=== PATIENT | male | born 1960 | race Caucasian/White ===

== ENCOUNTER 2022-09-30 15:49 | Outpatient (CLI) | payer BC, SELFPAY ==
[2022-09-30 17:44] LABS: Albumin* 4.6 g/dL (3.3-5.0); Chloride* 105 mmol/L (96-114)
[2022-09-30 17:45] LABS: Potassium* 4.8 mmol/L (3.6-5.1); Sodium* 141 mmol/L (135-149)
[2022-09-30 17:47] LABS: Bilirubin Total* 0.7 mg/dL (0.1-1.5); Creatinine* 1.3 mg/dL (0.5-1.5); Estimated Glomerular Filt Rate 63 ml/min
[2022-09-30 17:48] LABS: Alanine Aminotransferase* 13 U/L (4-50); Alkaline Phosphatase* 79 U/L (40-150); Aspartate Amino Transferase* 19 U/L (12-35); Blood Urea Nitrogen* 20 mg/dL (7-30); Calcium* 10.1 mg/dL (8.4-10.6); Carbon Dioxide* 28 mmol/L (20-32); Glucose* 86 mg/dL (60-115)
[2022-09-30 18:14] LABS: TSH With Reflex to FT4* 0.757 uIU/mL (0.270-4.200)
== END 2022-09-30 15:50 | disposition home or self-care (01) ==
PROVIDERS: PCP Family Medicine; Visit Provider Family Medicine
DX: R63.4 Abnormal weight loss (principal); I10 Essential (primary) hypertension; E78.5 Hyperlipidemia, unspecified; N18.9 Chronic kidney disease, unspecified; E78.1 Pure hyperglyceridemia
CPT/HCPCS: 80053; 84443

== ENCOUNTER 2022-10-03 13:00 | Outpatient (CLI) | payer BC, SELFPAY ==
--- NOTE | 2022-10-03 13:00 | CRLHL7_ITS ---
For Patients: As a result of the Century Cures Act, medical imaging exams and procedure reports are released immediately into your electronic medical record. You may view this report before your referring provider. If you have questions, please contact your health care provider. INDICATION: Tongue mass. TECHNIQUE: CT of the neck soft tissues performed with IV contrast. Contrast: 94 cc Isovue 370. COMPARISON: None available at this institution. FINDINGS: There is a large base of tongue lesion which measures up to approximately 4.9 x 4.2 x 4.3 cm (TR X AP X CC). Lesion centered upon the right base of tongue however appears to cross midline. Erosive changes along the right base of tongue mucosal surface. The lesion obscures fat planes between the right base of tongue and extrinsic muscles of the tongue. There is potential for extrinsic tongue muscle involvement. The nasopharynx appears unremarkable. The glottic and infraglottic spaces appear preserved. There are multiple necrotic appearing lymph nodes present at multiple cervical levels including bilateral level 2, 3 and left level 4. Largest right-sided lymph node located level 2b and measures up to 1.9 cm. The larger left-sided lymph nodes are located left level 2A, measuring up to 2.2 cm and left level 4 measuring up to 2.3 cm. Thyroid gland appears unremarkable. The parotid and submandibular glands appear normal. Mild centrilobular and paraseptal emphysema. Mild spondylosis of the cervical spine. IMPRESSION: 1. Large right base of tongue lesion likely primary carcinoma, measuring up to 4.9 cm and crossing midline. Correlate with direct visualization and biopsy. Consider MRI evaluation as indicated for potential involvement of the extrinsic tongue musculature. 2. Multiple cervical chain necrotic likely metastatic lymphadenopathy involving bilateral levels 2 and 3 in addition to left level 4 and measuring up to 2.3 cm. Please note that all CT scans at this facility use dose modulation, iterative reconstruction, and/or weight-based dosing when appropriate to reduce radiation dose to as low as reasonably achievable. Dictated by Rajinder Coronado MD @ 10/03/2022 3:45:14 PM (Electronically Signed)
== END 2022-10-03 13:01 | disposition home or self-care (01) ==
PROVIDERS: PCP Family Medicine; Visit Provider Family Medicine
DX: K14.8 Other diseases of tongue (principal)
CPT/HCPCS: 70491; Q9967

== ENCOUNTER 2022-12-21 14:52 | Outpatient (CLI) | payer BC, SELFPAY ==
[2022-12-21 18:36] LABS: PCR FLU A Negative PCR FLU A (Negative); PCR FLU B Negative PCR FLU B (Negative); PCR RSV Negative PCR RSV (Negative); SARS PCR* POSITIVE SARS-CoV-2 (Negative)
== END 2022-12-21 14:53 | disposition home or self-care (01) ==
LOC: LONREF 14:53
PROVIDERS: PCP Family Medicine; Visit Provider Family Medicine
DX: R05.9 Cough, unspecified (principal)
CPT/HCPCS: 87502; 87634; 87635

== ENCOUNTER 2023-02-06 09:28 | Emergency (ER) | payer BC, SELFPAY ==
[2023-02-06 09:32] VITALS: BP 118/75; PULSE 83; RESP 20; O2SAT 95; BMI 22.8
--- NOTE | 2023-02-06 10:17 | ED.GENADULT ---
HPI - General Adult General Time Seen by Provider: 10:17 Date Seen: 02/06/23 Chief complaint: Abdominal Pain Stated complaint: From [facility] Time Seen by Provider: 02/06/23 10:16 Source: patient, family, RN notes reviewed and old records reviewed Mode of arrival: ambulatory Limitations: no limitations History of Present Illness HPI narrative: Gilbert is a very pleasant 62-year-old male with a history of gallbladder sludge, no previous abdominal surgery, current treatment for oral cancer with radiation and chemotherapy who comes to the emergency room from [facility] for evaluation of abdominal pain. Patient notes the onset of some abdominal discomfort on Monday night February 03. He notes that he has a history of IBS and that he has been experiencing constipation with only small amounts of production. He started oxycodone 1 week ago for discomfort. He denies any blood in his stool. He states that he is needing 10 more days of radiation and 2 more weeks of chemotherapy at this point. He has been using oxycodone for discomfort. He denies dysuria or hematuria. He does not have any back pain at this time. He denies nausea or vomiting. I do note notes from Oncology and symptoms are consistent with what was previously described. Patient does have blood work drawn at [facility] earlier this morning. Related Data Home Medications Medication Instructions Recorded Confirmed aspirin 81 mg capsule 81 mg PO .QOD 07/05/22 01/23/23 omega 8-yaa-cqf-fish oil 100 2 cap PO DAILY 07/05/22 02/06/23 mg-160 mg-1,000 mg capsule (Fish Oil) cholecalciferol (vitamin D3) 125 125 mcg PO DAILY 10/25/22 02/06/23 mcg (5,000 unit) tablet (Vitamin D3) Previous Rx's Medication Instructions Recorded pantoprazole 40 mg tablet,delayed 40 mg PO QDAY #90 tabs 07/05/22 release (Protonix) fenofibrate nanocrystallized 145 145 mg PO QDAY #90 tabs 07/14/22 mg tablet atorvastatin 40 mg tablet See Rx Instructions .Route 10/13/22 .COMPLEX #90 tabs lisinopril 5 mg tablet See Rx Instructions .Route 10/13/22 .COMPLEX #90 tabs ondansetron 4 mg disintegrating 4 mg PO Q6H PRN nausea #30 tabs 10/25/22 tablet prochlorperazine maleate 10 mg 10 mg PO QID PRN nausea #30 tabs 10/25/22 tablet aripiprazole 20 mg tablet (Abilify) 20 mg PO QDAY #60 tabs 01/17/23 hydroxyzine HCl 25 mg tablet 25 - 50 mg PO QHS PRN insomnia #60 01/17/23 tabs lamotrigine 200 mg tablet 200 mg PO QDAY #60 tabs 01/17/23 (Lamictal) lamotrigine 25 mg tablet (Lamictal) 50 mg PO QDAY #120 tabs 01/17/23 Allergies Allergy/AdvReac Type Severity Reaction Status Date / Time citalopram Allergy Severe Manic State Verified 02/06/23 08:55 sertraline Allergy Intermediate Electrical Verified 02/06/23 08:55 feeling All Anti-Depressants AdvReac Intermediate Uncoded 01/16/23 15:26 Review of Systems Status of ROS: Reports: 10 or more systems reviewed and unremarkable except as noted in History and below Const: Denies: fever, chills or fatigue ENMT: Reports: mouth pain; Denies: throat pain or difficulty swallowing Cardio: Denies: chest pain, swelling of feet/ankles or shortness of breath with exertion Resp: Denies: shortness of breath GI: Reports: abdominal pain and constipation; Denies: nausea, vomiting, difficulty swallowing or blood in stool : Denies: urinary frequency Musculo: Denies: back pain Endo: Denies: fatigue PFSH PFSH Medical History History of alcohol abuse ?F10.11 - Alcohol abuse, in remission (ICD-10) History of marijuana use ?F12.91 - Cannabis use, unspecified, in remission (ICD-10) Left shoulder pain ?M25.512 - Pain in left shoulder (ICD-10) Medication management ?Z79.899 - Other detention (current) drug therapy (ICD-10) Surgical History History of eye surgery ?Z98.890 - Other specified postprocedural states (ICD-10) History of lumbar laminectomy (09/09/09) ?Z98.890 - Other specified postprocedural states (ICD-10) Status post arthroscopy of right knee ?Z98.890 - Other specified postprocedural states (ICD-10) Social History What is your current living situation: I presently have a place to live How many days of moderate to strenuous exercise, like a brisk walk, did you do in the last 7 days: 0 Smoking Status: Former smoker How often do you have a drink containing alcohol: monthly or less How often do you have six or more drinks on one occasion: Never AUDIT-C Alcohol total score: 1 Non-prescribed substance use: denies use Caffeine: Yes Are you now , , , , never or living with a partner: Social isolation score (0-1 are the most socially isolated patients): 1 service: No Exam Narrative: Exam Narrative: Patient is alert and oriented. He is lying on his right side. His heart is with regular rate and rhythm and lungs are clear to auscultation. Abdomen is tender in the left lower quadrant and suprapubic areas. No pain with percussion over the CVA or back bilaterally. Moving the bed does appear to increase his discomfort. Const: Vital Signs, click to edit/add: Vital Signs - 24 hr 02/06/23 09:32 02/06/23 11:49 02/06/23 12:00 Pulse Rate 78 79 Pulse Rate [Pulse Oximeter] 83 Respiratory Rate 20 Blood Pressure Blood Pressure [Le ft Upper Arm] 118/75 Pulse Oximetry 95 97 95 Oxygen Delivery Me thod Room Air 02/06/23 12:01 Pulse Rate 80 Pulse Rate [Pulse Oximeter] Respiratory Rate Blood Pressure 110/72 Blood Pressure [Le ft Upper Arm] Pulse Oximetry 96 Oxygen Delivery Me thod Documenting provider has reviewed patient's vital signs: yes Course Course Hospital Course: At this time differential diagnosis does include constipation, abdominal colic, colitis, diverticulitis, appendicitis, internal hernia, ischemic bowel. Patient is agreeable to Toradol 15 mg IV. In the hopes that this inflammatory effect will be helpful. Will check labs from earlier today and add CRP as well as urinalysis. Flat plate and upright of the abdomen to start with but we cannot rule out the need for a CT in the future. Reevaluation(s) Reevaluation #1: Rectal exam shows of very firm stool in the rectal vault. I did try to break down some of the larger stool masses. Vital Signs Vital signs: Initial Vital Signs Temperature Source Temporal Artery Scan 02/06/23 09:32 Pulse Rate 83 02/06/23 09:32 Pulse Rhythm Regular 02/06/23 09:32 Respiratory Rate 20 02/06/23 09:32 Blood Pressure 118/75 02/06/23 09:32 Blood Pressure Mean 89 02/06/23 09:32 Blood Pressure Position Right Lateral 02/06/23 09:32 Pulse Oximetry 95 02/06/23 09:32 Oxygen Delivery Method Room Air 02/06/23 09:32 Vital Signs Pulse Rate 83 02/06/23 09:32 Respiratory Rate 20 02/06/23 09:32 Blood Pressure 118/75 02/06/23 09:32 Pulse Oximetry 95 02/06/23 09:32 Oxygen Delivery Method Room Air 02/06/23 09:32 Pulse Rate 80 02/06/23 12:01 Respiratory Rate 20 02/06/23 09:32 Blood Pressure 110/72 02/06/23 12:01 Pulse Oximetry 96 02/06/23 12:01 Oxygen Delivery Method Room Air 02/06/23 09:32 Medical Decision Making MDM Narrative Medical decision making narrative: 1. Constipation-CRP was elevated but white count from earlier today as well as LFTs reassuring. Flat plate and upright did show a large amount of stool and no evidence of an obstruction. Did speak to patient about an enema and he was receptive to that. Enemeez enema was given and patient had a large amount of stool. He is feeling better at this time and will be discharged home. I did offer a further pink lady enema with more volume but he declines at this time. Did states that he could do a Fleet's enema at home if he would like. I did check with [facility] to ensure they did not have protocol for constipation. They are in agreement with me that we will do MiraLax 1 full dose tonight and then 1/2 dose twice daily starting tomorrow. Of course, for worsening symptoms would have him return to the emergency room. 2. Disposition-home at this time. Patient does agree that he is feeling better and is passing gas in the room. No evidence of sepsis or other underlying problem today but if fever, blood in stool, worsening symptoms develop would have him return to the emergency room for evaluation. Medical Records Medical records reviewed: Yes I reviewed the patient's medical records Lab Data Lab results reviewed: Yes I reviewed the patient's lab results Labs: Lab Results 02/06/23 Range/Units 08:45 C-Reactive Protein 18.5 H (0.5-1.0) mg/dL Imaging Data Abdominal x-ray: Attestation: I have reviewed the pertinent imaging results. My impression: Large amount of stool noted. No obvious air-fluid levels or signs of obstruction. Radiologist's impression: None Findings/Impression: No dilated loops of large or small intestine. Moderate amount of stool within the colon. Lung bases clear. No abnormal calcifications. Discharge Plan Discharge Clinical Impression: Acute constipation, Abdominal pain Patient Disposition: Home, Self-Care Condition: Improved Additional Instructions: MiraLax twice a day. Start with full dose tonight and tomorrow 1/2 dose in the morning and 1/2 dose at night until stools are soft. Return to the emergency room for worsening symptoms and as needed. You may do a Fleet's enema at home as well. I spoke to [facility] and they felt enemas and MiraLax could safely be used. Prescriptions: No Action aripiprazole [Abilify] 20 mg tablet 20 mg PO QDAY Qty: 60 0RF hydroxyzine HCl 25 mg tablet 25 - 50 mg PO QHS PRN (Reason: insomnia) Qty: 60 1RF lamotrigine [Lamictal] 200 mg tablet 200 mg PO QDAY Qty: 60 1RF lamotrigine [Lamictal] 25 mg tablet 50 mg PO QDAY Qty: 120 1RF cholecalciferol (vitamin D3) [Vitamin D3] 125 mcg (5,000 unit) tablet 125 mcg PO DAILY Fish Oil 100-160-1,000 mg capsule 2 cap PO DAILY aspirin 81 mg capsule 81 mg PO .QOD Hold Instructions: on hold during chemo pantoprazole [Protonix] 40 mg tablet,delayed release (DR/EC) 40 mg PO QDAY Qty: 90 3RF fenofibrate nanocrystallized 145 mg tablet 145 mg PO QDAY Qty: 90 3RF atorvastatin 40 mg tablet See Rx Instructions .ROUTE .COMPLEX Qty: 90 3RF Dose Instruction: TAKE 1 TABLET (40 MG) BY MOUTH AT BEDTIME Rx Instructions: TAKE 1 TABLET (40 MG) BY MOUTH AT BEDTIME lisinopril 5 mg tablet See Rx Instructions .ROUTE .COMPLEX Qty: 90 3RF Dose Instruction: 5 MG BY MOUTH DAILY Rx Instructions: 5 MG BY MOUTH DAILY prochlorperazine maleate 10 mg tablet 10 mg PO QID PRN (Reason: nausea) Qty: 30 1RF Patient Comments: has on hand but not needing ondansetron 4 mg tablet,disintegrating 4 mg PO Q6H PRN (Reason: nausea) Qty: 30 1RF Patient Comments: has on hand but hasn't needed it. Rx Instructions: Do not take for 24 -36 hours after chemotherapy. May take #2 for nausea if prochlorperazine (compazine) ineffective. Follow Up/Referrals: Jimmy Pineda MD [Primary Care Provider] - Stand Alone Forms: [facility]
--- NOTE | 2023-02-06 10:28 | CRLHL7_ITS ---
For Patients: As a result of the Century Cures Act, medical imaging exams and procedure reports are released immediately into your electronic medical record. You may view this report before your referring provider. If you have questions, please contact your health care provider. Indication: Abdomen pain Technique: Abdomen 2 view, 4 films Comparison: None Findings/Impression: No dilated loops of large or small intestine. Moderate amount of stool within the colon. Lung bases clear. No abnormal calcifications. Dictated by Henry North MD @ 02/06/2023 11:52:47 AM (Electronically Signed)
[2023-02-06] MEDS: 0.9 % SODIUM CHLORIDE 1000 ml 1,000 ML IV (11:16)
[2023-02-06] MEDS: KETOROLAC 15 MG/ML inj IVP (11:16)
[2023-02-06 11:38] LABS: C Reactive Protein* 18.5 mg/dL (0.5-1.0)
[2023-02-06 11:49] VITALS: PULSE 78; O2SAT 97
[2023-02-06 12:00] VITALS: PULSE 79; O2SAT 95
[2023-02-06 12:01] VITALS: BP 110/72; PULSE 80; O2SAT 96
[2023-02-06] MEDS: DOCUSATE SODIUM/BENZOCAINE 5 ML ENEMA PR (12:42)
== END 2023-02-06 14:15 | disposition home or self-care (01) ==
PROVIDERS: Emergency Provider Family Medicine; PCP Family Medicine
DX: K59.00 Constipation, unspecified (principal); R10.9 Unspecified abdominal pain
CPT/HCPCS: 36415; 74019; 81001; 86140; 96374; 99284; A9270; J1885; J7030

== ENCOUNTER 2023-04-10 10:30 | Outpatient (RCR) | payer BC, SELFPAY ==
--- NOTE | 2022-10-24 11:58 | URNOTE ---
Received request for prior authorization for Carboplatin (J9045), Paclitaxel (J9267) and Aloxi (J2469). Per Availity, prior auth is not required for these medications. Ref #[id number]
[2022-10-25 09:46] VITALS: BP 117/81; PULSE 78; RESP 16; TEMP 36.5; O2SAT 96
[2022-10-25 10:18] LABS: Basophils Absolute Auto 0.03 K/uL (0.00-0.30); Basophils Percent Auto 0.5 % (0.0-3.0); Eosinophils Absolute Auto 0.11 K/uL (0.00-0.50); Eosinophils Percent Auto 1.9 % (0.0-7.0); Hematocrit 40.3 % (37.0-53.0); Hemoglobin* 13.3 gm/dL (13.5-17.5); Immature Granulocytes Abs Auto 0.01 K/uL (0.00-0.30); Immature Granulocytes Pct Auto 0.2 %; Lymphocytes Percent Auto 19.6 % (20-44); Mean Corpuscular HGB Conc 33 gm/dL (32-36); Mean Corpuscular Hemoglobin 31 pg (26-34); Mean Corpuscular Volume 94 fL (80-100); Monocytes Percent Auto 6.9 % (0.0-11.0); Neutrophils Absolute Auto 4.01 K/uL (1.7-7.0); Neutrophils Percent Auto 70.9 % (42.0-72.0); Platelet Count* 256 K/uL (140-440); RDW Coefficient of Variation % 12.8 % (11.5-15.5); Red Blood Count 4.28 m/uL (4.30-5.90); White Blood Count* 5.66 K/uL (4.50-11.00)
[2022-10-25 10:27] LABS: Slide Review Reflex No
[2022-10-25 10:34] LABS: Albumin* 4.2 g/dL (3.3-5.0); Chloride* 107 mmol/L (96-114)
[2022-10-25 10:35] LABS: Potassium* 3.9 mmol/L (3.6-5.1); Sodium* 138 mmol/L (135-149)
[2022-10-25 10:37] LABS: Bilirubin Total* 0.5 mg/dL (0.1-1.5); Carbon Dioxide* 25 mmol/L (20-32); Creatinine* 1.1 mg/dL (0.5-1.5); Estimated Glomerular Filt Rate 77 ml/min
[2022-10-25 10:38] LABS: Alanine Aminotransferase* 19 U/L (4-50); Alkaline Phosphatase* 60 U/L (40-150); Aspartate Amino Transferase* 21 U/L (12-35); Blood Urea Nitrogen* 21 mg/dL (7-30); Calcium* 9.3 mg/dL (8.4-10.6); Glucose* 132 mg/dL (60-115); Total Protein* 6.6 g/dL (6.0-8.3)
[2022-10-25] MEDS: dexAMETHasone 20 MG in 0.9 % SODIUM CHLORIDE 100 ml 100 ML 408 MG IVPB (11:59)
[2022-10-25] MEDS: FAMOTIDINE 20 MG, diphenhydrAMINE 50 MG in 0.9 % SODIUM CHLORIDE 100 ml 100 ML 400 MG IVPB (12:19)
[2022-10-25] MEDS: PALONOSETRON 0.25 MG/5 ML inj IVP (12:21)
--- NOTE | 2022-10-25 12:35 | URNOTE ---
Received request for Fosaprepitant (J1453). Per Availity, prior authorization is not required. Ref #[id number]
[2022-10-26 09:37] VITALS: BP 142/91; PULSE 78; RESP 16; TEMP 36.2; O2SAT 97
[2022-10-26] MEDS: FOSAPREPITANT 150 MG inj 150 MG in 0.9 % SODIUM CHLORIDE 250 ml 250 ML 510 MG IVPB (09:54)
[2022-11-03 11:11] LABS: Basophils Percent Auto 0.5 % (0.0-3.0); Eosinophils Percent Auto 1.7 % (0.0-7.0); Hematocrit 38.5 % (37.0-53.0); Hemoglobin* 12.7 gm/dL (13.5-17.5); Immature Granulocytes Pct Auto 0.2 %; Lymphocytes Percent Auto 18.2 % (20-44); Mean Corpuscular HGB Conc 33 gm/dL (32-36); Mean Corpuscular Hemoglobin 31 pg (26-34); Mean Corpuscular Volume 94 fL (80-100); Monocytes Percent Auto 5.4 % (0.0-11.0); Platelet Count* 257 K/uL (140-440); Red Blood Count 4.08 m/uL (4.30-5.90); Slide Review Reflex No; White Blood Count* 4.07 K/uL (4.50-11.00)
--- NOTE | 2022-11-03 14:08 | ONC.NURNOTE ---
Pt here for CBC, labs reviewed by Letitia Quinones APRN. Special Education Professor called pt with results. Pt doing well, denies concerns.
[2022-11-14 09:33] LABS: Basophils Absolute Auto 0.02 K/uL (0.00-0.30); Basophils Percent Auto 0.4 % (0.0-3.0); Eosinophils Absolute Auto 0.05 K/uL (0.00-0.50); Hematocrit 40.4 % (37.0-53.0); Hemoglobin* 13.2 gm/dL (13.5-17.5); Immature Granulocytes Abs Auto 0.03 K/uL (0.00-0.30); Immature Granulocytes Pct Auto 0.6 %; Lymphocytes Absolute Auto 1.73 K/uL (0.90-2.90); Lymphocytes Percent Auto 34.3 % (20-44); Mean Corpuscular HGB Conc 33 gm/dL (32-36); Mean Corpuscular Hemoglobin 31 pg (26-34); Mean Corpuscular Volume 96 fL (80-100); Monocytes Percent Auto 9.3 % (0.0-11.0); Neutrophils Absolute Auto 2.74 K/uL (1.7-7.0); Neutrophils Percent Auto 54.4 % (42.0-72.0); Platelet Count* 284 K/uL (140-440); RDW Coefficient of Variation % 13.2 % (11.5-15.5); Red Blood Count 4.22 m/uL (4.30-5.90); White Blood Count* 5.04 K/uL (4.50-11.00)
[2022-11-14 09:36] LABS: Slide Review Reflex No
[2022-11-14 09:51] LABS: Albumin* 4.1 g/dL (3.3-5.0)
[2022-11-14 09:52] LABS: Chloride* 106 mmol/L (96-114); Potassium* 4.3 mmol/L (3.6-5.1); Sodium* 139 mmol/L (135-149)
[2022-11-14 09:54] LABS: Aspartate Amino Transferase* 21 U/L (12-35); Bilirubin Total* 0.3 mg/dL (0.1-1.5); Carbon Dioxide* 25 mmol/L (20-32); Creatinine* 1.2 mg/dL (0.5-1.5); Est. Creatinine Clearance* 81.44; Estimated Glomerular Filt Rate 69 ml/min
[2022-11-14 09:55] LABS: Alanine Aminotransferase* 21 U/L (4-50); Alkaline Phosphatase* 68 U/L (40-150); Blood Urea Nitrogen* 22 mg/dL (7-30); Calcium* 9.2 mg/dL (8.4-10.6); Glucose* 104 mg/dL (60-115); Total Protein* 6.9 g/dL (6.0-8.3)
[2022-11-15 09:27] VITALS: BP 117/76; PULSE 74; RESP 16; TEMP 36.2; O2SAT 95
[2022-11-15] MEDS: 0.9 % SODIUM CHLORIDE 250 ml IV (10:00)
[2022-11-15] MEDS: PALONOSETRON 0.25 MG/5 ML inj IVP (10:15)
[2022-11-15] MEDS: dexAMETHasone 10 MG in 0.9 % SODIUM CHLORIDE 100 ml 100 ML 408 MG IVPB (10:15)
[2022-11-15] MEDS: FAMOTIDINE 20 MG, diphenhydrAMINE 50 MG in 0.9 % SODIUM CHLORIDE 100 ml 100 ML 309 MG IVPB (10:36)
[2022-11-15] MEDS: FOSAPREPITANT 150 MG inj 150 MG in 0.9 % SODIUM CHLORIDE 250 ml 250 ML 510 MG IVPB (10:58)
--- NOTE | 2022-11-21 11:13 | ONC.NURNOTE ---
Addendum entered by Margaret Bethea RN 11/21/22 15:14: Per Dr. Sosa, this is adequate. Patient called back and states that dental office wants a platelet check prior to appointment on 12/01/2022 - CBC without diff ordered by CARDIAC NURSE PRACTITIONER. Original Note: C Developer received phone call from dental office stating that patient needs to have a cavity filled. They are wondering about any precautions that need to be taken. Patient is currently getting every three week taxol/carbo. Last dose to be given on 12/05/2022. Then to be followed with concurrent chemoradiation. Dental office told that would be best to fill cavity the end of next week to be sure that counts have recovered. Nursing to ask provider if anything further should be done.
[2022-11-29 11:20] LABS: Basophils Percent Auto 0.5 % (0.0-3.0); Eosinophils Percent Auto 1.8 % (0.0-7.0); Hematocrit 39.2 % (37.0-53.0); Hemoglobin* 12.9 gm/dL (13.5-17.5); Immature Granulocytes Pct Auto 0.5 %; Lymphocytes Percent Auto 50.7 % (20-44); Mean Corpuscular HGB Conc 33 gm/dL (32-36); Mean Corpuscular Hemoglobin 32 pg (26-34); Mean Corpuscular Volume 96 fL (80-100); Monocytes Percent Auto 13.4 % (0.0-11.0); Neutrophils Percent Auto 33.1 % (42.0-72.0); Platelet Count* 246 K/uL (140-440); RDW Coefficient of Variation % 13.9 % (11.5-15.5); White Blood Count* 2.17 K/uL (4.50-11.00)
[2022-11-29 11:22] LABS: Slide Review Reflex Yes
[2022-11-29 11:33] LABS: Albumin* 4.3 g/dL (3.3-5.0); Chloride* 108 mmol/L (96-114)
[2022-11-29 11:34] LABS: Potassium* 4.4 mmol/L (3.6-5.1); Sodium* 140 mmol/L (135-149)
[2022-11-29 11:36] LABS: Alkaline Phosphatase* 64 U/L (40-150); Aspartate Amino Transferase* 19 U/L (12-35); Bilirubin Total* 0.4 mg/dL (0.1-1.5); Blood Urea Nitrogen* 16 mg/dL (7-30); Carbon Dioxide* 25 mmol/L (20-32); Creatinine* 1.1 mg/dL (0.5-1.5); Estimated Glomerular Filt Rate 77 ml/min
[2022-11-29 11:37] LABS: Alanine Aminotransferase* 19 U/L (4-50); Calcium* 9.3 mg/dL (8.4-10.6); Glucose* 109 mg/dL (60-115)
[2022-11-29 11:46] LABS: Slide Review Acceptable Review (Acceptable)
--- NOTE | 2022-11-29 11:49 | ONC.NURNOTE ---
Patient in for blood work previously to dental appointment due to breaking a teeth. Platelets noted to be WNL but WBC and ANC low and patient neutropenic. Patient given copy of CBC and mortgage underwriter asked him to show it to his dental office prior to any work so that maybe they might add an antibiotic prophylactic prior to his dental work.
[2022-12-05 08:50] LABS: Basophils Percent Auto 0.3 % (0.0-3.0); Eosinophils Percent Auto 1.1 % (0.0-7.0); Immature Granulocytes Pct Auto 0.6 %; Lymphocytes Percent Auto 40.4 % (20-44); Mean Corpuscular HGB Conc 33 gm/dL (32-36); Mean Corpuscular Hemoglobin 32 pg (26-34); Mean Corpuscular Volume 98 fL (80-100); Monocytes Percent Auto 10.8 % (0.0-11.0); Neutrophils Percent Auto 46.8 % (42.0-72.0); Platelet Count* 262 K/uL (140-440); RDW Coefficient of Variation % 14.5 % (11.5-15.5); White Blood Count* 3.61 K/uL (4.50-11.00)
[2022-12-05 08:54] LABS: Slide Review Reflex No
[2022-12-05 09:06] LABS: Albumin* 4.2 g/dL (3.3-5.0); Chloride* 105 mmol/L (96-114)
[2022-12-05 09:07] LABS: Potassium* 4.1 mmol/L (3.6-5.1); Sodium* 138 mmol/L (135-149)
[2022-12-05 09:09] LABS: Alkaline Phosphatase* 63 U/L (40-150); Aspartate Amino Transferase* 20 U/L (12-35); Bilirubin Total* 0.4 mg/dL (0.1-1.5); Blood Urea Nitrogen* 20 mg/dL (7-30); Carbon Dioxide* 29 mmol/L (20-32); Creatinine* 1.2 mg/dL (0.5-1.5); Estimated Glomerular Filt Rate 69 ml/min
[2022-12-05 09:10] LABS: Alanine Aminotransferase* 20 U/L (4-50); Calcium* 9.2 mg/dL (8.4-10.6); Glucose* 127 mg/dL (60-115)
--- NOTE | 2022-12-05 10:01 | ONC.NURNOTE ---
Verbal order for CBC w/ diff and CMP from Letitia Quinones CNP. Labs were peripherally drawn.
[2022-12-05] MEDS: PALONOSETRON 0.25 MG/5 ML inj IVP (11:24)
[2022-12-05 11:26] LABS: Magnesium* 1.8 mg/dL (1.5-2.6)
[2022-12-05] MEDS: dexAMETHasone 10 MG in 0.9 % SODIUM CHLORIDE 100 ml 100 ML 404 MG IVPB (11:31)
[2022-12-05] MEDS: FOSAPREPITANT 150 MG inj 150 MG in 0.9 % SODIUM CHLORIDE 250 ml 250 ML 510 MG IVPB (11:49)
[2022-12-05] MEDS: FAMOTIDINE 20 MG, diphenhydrAMINE 50 MG in 0.9 % SODIUM CHLORIDE 100 ml 100 ML 309 MG IVPB (12:25)
[2022-12-05] MEDS: SODIUM CHLORIDE 0.9 % (FLUSH) 10 ML SYRINGE IVF (15:25)
[2022-12-05] MEDS: 0.9 % SODIUM CHLORIDE 250 ml IV (15:25)
--- NOTE | 2022-12-05 15:56 | ONC.NURNOTE ---
referal faxed to Radiation. see Letitia Camacho APRN note.
--- NOTE | 2022-12-21 15:37 | ONC.NURNOTE ---
Pt called today with concerns of cold symptoms. Pt states he has had a runny nose for 2 weeks with clear drainage. Today he states the post nasal drip started causing his throat to itch and cough. Pt tested himself for COVID on Monday at home with a negative result. Pt states he feels well, and not not had any fevers. Personal Carer discussed patient symptoms with Letitia Leon APRN and pt then instructed to be assessed by his primary care physician or urgent care to see if further testing is needed. Pt verbalized understanding of plan of care.
--- NOTE | 2022-12-27 09:47 | URNOTE ---
Received request for prior authorization for Carboplatin (J9045). Per Availity, prior authorization is not required. REf #[id number]
--- NOTE | 2022-12-29 10:25 | ONC.NURNOTE ---
COORDINATION OF CARE FOR CHEMO START: patient reports improving COVID symptoms has not had any fever sinus symptoms improving, reports some lingering pressure and ringing in ears plan is to start carbo w/XRT on Monday informed to arrive at main entrance of hospital and call [facility] and house sup will come and do COVID test XRT planned for 829 then patient will go gome and [facility] staff will call with results and plan for lab and chemo at 1300 patient states understanding and is in agreement with plan House Sup is aware of plan orders in for antigen test
[2023-01-02 08:25] LABS: SARS Antigen* negative (Negative)
--- NOTE | 2023-01-02 08:36 | A.ONCPRONO_ITS ---
[facility] Provider Note Clinic Note Narrative: Treatment plan: weekly carboplatin with concurrent radiation therapy Mr. Pete follows locally at our clinic with Dr. 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 He completed 3 cycles of carboplatin and paclitaxel q [address] was obtained after cycle 3 and plan is to now proceed with weekly carboplatin with concurrent radiation therapy. He is receiving carboplatin due to underlying chronic kidney disease. Treatment plan for weekly carboplatin, auc of 2 was entered on behalf of Dr. Tone Sosa. Dr. Sosa confirmed 01/02/23 that dosing is AUC of 2. Mr. Pete is recovering from covid 19 infection as was seen by Dr. Sosa via telehealth on 12/26/22. Plan is for treatment to proceed 01/02/23 if Mr. Pete's symptoms have resolved. He will be tested at home for covid antigen test and again for covid 19 antigen at the hospital prior to coming to [facility] for treatment so that appropriate care precautions are in place for him.
[2023-01-02 13:08] LABS: Basophils Absolute Auto 0.02 K/uL (0.00-0.30); Basophils Percent Auto 0.4 % (0.0-3.0); Eosinophils Absolute Auto 0.02 K/uL (0.00-0.50); Eosinophils Percent Auto 0.4 % (0.0-7.0); Hematocrit 40.2 % (37.0-53.0); Hemoglobin* 13.1 gm/dL (13.5-17.5); Immature Granulocytes Abs Auto 0.01 K/uL (0.00-0.30); Immature Granulocytes Pct Auto 0.2 %; Lymphocytes Absolute Auto 1.06 K/uL (0.90-2.90); Lymphocytes Percent Auto 22.5 % (20-44); Mean Corpuscular HGB Conc 33 gm/dL (32-36); Mean Corpuscular Hemoglobin 32 pg (26-34); Mean Corpuscular Volume 99 fL (80-100); Monocytes Percent Auto 7.2 % (0.0-11.0); Neutrophils Absolute Auto 3.27 K/uL (1.7-7.0); Neutrophils Percent Auto 69.3 % (42.0-72.0); Platelet Count* 233 K/uL (140-440); RDW Coefficient of Variation % 15.5 % (11.5-15.5); Red Blood Count 4.08 m/uL (4.30-5.90); White Blood Count* 4.72 K/uL (4.50-11.00)
[2023-01-02 13:10] LABS: Slide Review Reflex No
[2023-01-02 13:14] VITALS: BP 112/76; PULSE 81; RESP 16; TEMP 36; O2SAT 96
[2023-01-02 13:23] LABS: Albumin* 4.2 g/dL (3.3-5.0); Chloride* 105 mmol/L (96-114); Potassium* 3.8 mmol/L (3.6-5.1); Sodium* 140 mmol/L (135-149)
[2023-01-02 13:26] LABS: Alanine Aminotransferase* 21 U/L (4-50); Alkaline Phosphatase* 59 U/L (40-150); Aspartate Amino Transferase* 22 U/L (12-35); Bilirubin Total* 0.5 mg/dL (0.1-1.5); Blood Urea Nitrogen* 20 mg/dL (7-30); Carbon Dioxide* 29 mmol/L (20-32); Creatinine* 1.1 mg/dL (0.5-1.5); Estimated Glomerular Filt Rate 77 ml/min; Glucose* 117 mg/dL (60-115)
[2023-01-02 13:27] LABS: Calcium* 9.3 mg/dL (8.4-10.6)
[2023-01-02] MEDS: ONDANSETRON 2 MG/ML inj 8 MG IV (14:25)
[2023-01-02] MEDS: dexAMETHasone 20 MG in 0.9 % SODIUM CHLORIDE 100 ml 100 ML 408 MG IVPB (14:26)
[2023-01-02] MEDS: 0.9 % SODIUM CHLORIDE 250 ml IV (15:14)
[2023-01-02] MEDS: SODIUM CHLORIDE 0.9 % (FLUSH) 10 ML SYRINGE IVF (15:15)
[2023-01-09 09:48] VITALS: BP 126/87; PULSE 73; RESP 16; TEMP 36.3; O2SAT 98
[2023-01-09 09:50] LABS: Basophils Percent Auto 0.3 % (0.0-3.0); Eosinophils Percent Auto 1.5 % (0.0-7.0); Hematocrit 38.8 % (37.0-53.0); Hemoglobin* 13.2 gm/dL (13.5-17.5); Immature Granulocytes Pct Auto 0.6 %; Lymphocytes Percent Auto 20.9 % (20-44); Mean Corpuscular HGB Conc 34 gm/dL (32-36); Mean Corpuscular Hemoglobin 33 pg (26-34); Mean Corpuscular Volume 98 fL (80-100); Monocytes Percent Auto 10.8 % (0.0-11.0); Neutrophils Percent Auto 65.9 % (42.0-72.0); Platelet Count* 231 K/uL (140-440); RDW Coefficient of Variation % 15.5 % (11.5-15.5); Red Blood Count 3.97 m/uL (4.30-5.90); White Blood Count* 3.25 K/uL (4.50-11.00)
[2023-01-09 09:51] LABS: Slide Review Reflex No
[2023-01-09 10:01] LABS: Albumin* 4.2 g/dL (3.3-5.0); Chloride* 105 mmol/L (96-114); Potassium* 4.2 mmol/L (3.6-5.1); Sodium* 136 mmol/L (135-149)
[2023-01-09 10:04] LABS: Alanine Aminotransferase* 21 U/L (4-50); Alkaline Phosphatase* 61 U/L (40-150); Aspartate Amino Transferase* 20 U/L (12-35); Bilirubin Total* 0.6 mg/dL (0.1-1.5); Blood Urea Nitrogen* 17 mg/dL (7-30); Carbon Dioxide* 25 mmol/L (20-32); Estimated Glomerular Filt Rate 86 ml/min; Glucose* 106 mg/dL (60-115); Total Protein* 6.8 g/dL (6.0-8.3)
[2023-01-09 10:05] LABS: Calcium* 9.1 mg/dL (8.4-10.6)
[2023-01-09] MEDS: ONDANSETRON 2 MG/ML inj 8 MG IV (10:44)
[2023-01-09] MEDS: dexAMETHasone 20 MG in 0.9 % SODIUM CHLORIDE 100 ml 100 ML 408 MG IVPB (11:11)
[2023-01-16 07:52] LABS: Basophils Absolute Auto 0.01 K/uL (0.00-0.30); Basophils Percent Auto 0.2 % (0.0-3.0); Eosinophils Absolute Auto 0.05 K/uL (0.00-0.50); Hematocrit 40.6 % (37.0-53.0); Hemoglobin* 13.3 gm/dL (13.5-17.5); Immature Granulocytes Abs Auto 0.02 K/uL (0.00-0.30); Immature Granulocytes Pct Auto 0.4 %; Lymphocytes Percent Auto 15.9 % (20-44); Mean Corpuscular HGB Conc 33 gm/dL (32-36); Mean Corpuscular Hemoglobin 32 pg (26-34); Mean Corpuscular Volume 98 fL (80-100); Monocytes Percent Auto 7.6 % (0.0-11.0); Neutrophils Percent Auto 74.9 % (42.0-72.0); Platelet Count* 205 K/uL (140-440); RDW Coefficient of Variation % 15.7 % (11.5-15.5); Red Blood Count 4.13 m/uL (4.30-5.90); White Blood Count* 5.02 K/uL (4.50-11.00)
[2023-01-16 08:03] LABS: Slide Review Reflex No
[2023-01-16 08:19] LABS: Albumin* 4.2 g/dL (3.3-5.0); Chloride* 105 mmol/L (96-114); Sodium* 140 mmol/L (135-149)
[2023-01-16 08:20] LABS: Potassium* 3.9 mmol/L (3.6-5.1)
[2023-01-16 08:22] LABS: Alkaline Phosphatase* 62 U/L (40-150); Aspartate Amino Transferase* 18 U/L (12-35); Bilirubin Total* 0.6 mg/dL (0.1-1.5); Blood Urea Nitrogen* 22 mg/dL (7-30); Carbon Dioxide* 24 mmol/L (20-32); Estimated Glomerular Filt Rate 86 ml/min; Glucose* 141 mg/dL (60-115); Total Protein* 7.1 g/dL (6.0-8.3)
[2023-01-16 08:23] LABS: Alanine Aminotransferase* 19 U/L (4-50); Calcium* 9.1 mg/dL (8.4-10.6)
[2023-01-16 09:06] VITALS: BP 121/89; PULSE 77; RESP 16; TEMP 36.4; O2SAT 97
--- NOTE | 2023-01-16 09:45 | PC.NURSE ---
Addendum entered and electronically signed by Dee Herrera RN 01/16/23 09:57: Powdered Metal Supervisor notified BORDER INSPECTOR of this. She plans to assess patient. Original Note: Patient alerted RN of area on right radius wrist that is reddened, hard and tender to touch. Does not recall having an IV there or a lab draw there but stated I have been poked so many times, I can't remember. Patient denies fevers. Has full range of motion. Denies numbness and tingling in hand. Site marked with marker. Measures [id number].
[2023-01-16] MEDS: dexAMETHasone 20 MG in 0.9 % SODIUM CHLORIDE 100 ml 100 ML 420 MG IVPB (10:32)
[2023-01-16] MEDS: ONDANSETRON 2 MG/ML inj 8 MG IV (10:32)
[2023-01-23 08:01] LABS: Basophils Absolute Auto 0.01 K/uL (0.00-0.30); Basophils Percent Auto 0.2 % (0.0-3.0); Eosinophils Absolute Auto 0.04 K/uL (0.00-0.50); Eosinophils Percent Auto 0.8 % (0.0-7.0); Hematocrit 40.6 % (37.0-53.0); Hemoglobin* 13.4 gm/dL (13.5-17.5); Immature Granulocytes Abs Auto 0.02 K/uL (0.00-0.30); Immature Granulocytes Pct Auto 0.4 %; Lymphocytes Percent Auto 7.4 % (20-44); Mean Corpuscular HGB Conc 33 gm/dL (32-36); Mean Corpuscular Hemoglobin 33 pg (26-34); Mean Corpuscular Volume 100 fL (80-100); Monocytes Percent Auto 11.2 % (0.0-11.0); Platelet Count* 193 K/uL (140-440); RDW Coefficient of Variation % 15.9 % (11.5-15.5); Red Blood Count 4.08 m/uL (4.30-5.90); White Blood Count* 5.26 K/uL (4.50-11.00)
[2023-01-23 08:11] LABS: Slide Review Reflex No
[2023-01-23 08:15] LABS: Albumin* 4.3 g/dL (3.3-5.0); Chloride* 102 mmol/L (96-114)
[2023-01-23 08:16] LABS: Potassium* 4.1 mmol/L (3.6-5.1); Sodium* 137 mmol/L (135-149)
[2023-01-23 08:18] LABS: Bilirubin Total* 0.6 mg/dL (0.1-1.5); Carbon Dioxide* 28 mmol/L (20-32); Creatinine* 1.1 mg/dL (0.5-1.5); Estimated Glomerular Filt Rate 77 ml/min
[2023-01-23 08:19] LABS: Alanine Aminotransferase* 19 U/L (4-50); Alkaline Phosphatase* 61 U/L (40-150); Aspartate Amino Transferase* 19 U/L (12-35); Blood Urea Nitrogen* 19 mg/dL (7-30); Calcium* 9.6 mg/dL (8.4-10.6); Glucose* 126 mg/dL (60-115); Total Protein* 7.3 g/dL (6.0-8.3)
[2023-01-23 08:53] VITALS: BP 119/79; PULSE 81; RESP 16; TEMP 37.3; O2SAT 97
[2023-01-23] MEDS: 0.9 % SODIUM CHLORIDE 250 ml IV (09:55)
[2023-01-23] MEDS: SODIUM CHLORIDE 0.9 % (FLUSH) 10 ML SYRINGE IVF (09:55)
[2023-01-23] MEDS: ONDANSETRON 2 MG/ML inj 8 MG IV (09:55)
[2023-01-23] MEDS: dexAMETHasone 20 MG in 0.9 % SODIUM CHLORIDE 100 ml 100 ML 420 MG IVPB (09:56)
[2023-01-30 07:58] LABS: Basophils Percent Auto 0.3 % (0.0-3.0); Eosinophils Percent Auto 1.6 % (0.0-7.0); Hematocrit 38.4 % (37.0-53.0); Hemoglobin* 12.8 gm/dL (13.5-17.5); Immature Granulocytes Pct Auto 1.1 %; Lymphocytes Percent Auto 9.2 % (20-44); Mean Corpuscular HGB Conc 33 gm/dL (32-36); Mean Corpuscular Hemoglobin 33 pg (26-34); Mean Corpuscular Volume 100 fL (80-100); Monocytes Percent Auto 10.6 % (0.0-11.0); Neutrophils Percent Auto 77.2 % (42.0-72.0); Platelet Count* 157 K/uL (140-440); RDW Coefficient of Variation % 15.4 % (11.5-15.5); Red Blood Count 3.84 m/uL (4.30-5.90); White Blood Count* 3.68 K/uL (4.50-11.00)
[2023-01-30 07:59] LABS: Slide Review Reflex No
[2023-01-30 08:15] LABS: Albumin* 4.3 g/dL (3.3-5.0); Chloride* 101 mmol/L (96-114); Potassium* 4.1 mmol/L (3.6-5.1); Sodium* 136 mmol/L (135-149)
[2023-01-30 08:18] LABS: Alanine Aminotransferase* 17 U/L (4-50); Alkaline Phosphatase* 58 U/L (40-150); Aspartate Amino Transferase* 18 U/L (12-35); Bilirubin Total* 0.6 mg/dL (0.1-1.5); Blood Urea Nitrogen* 17 mg/dL (7-30); Carbon Dioxide* 29 mmol/L (20-32); Creatinine* 1.2 mg/dL (0.5-1.5); Estimated Glomerular Filt Rate 69 ml/min; Glucose* 118 mg/dL (60-115); Total Protein* 7.2 g/dL (6.0-8.3)
[2023-01-30 08:19] LABS: Calcium* 9.3 mg/dL (8.4-10.6)
[2023-01-30 08:55] VITALS: BP 132/84; PULSE 66; RESP 16; TEMP 37.2; O2SAT 93
[2023-01-30] MEDS: dexAMETHasone 20 MG in 0.9 % SODIUM CHLORIDE 100 ml 100 ML 408 MG IVPB (10:21)
[2023-01-30] MEDS: ONDANSETRON 2 MG/ML inj 8 MG IV (10:21)
--- NOTE | 2023-01-30 11:06 | ONC.NURNOTE ---
still white kancor sore in back of mouth on rt side. x6 weeks. states warm fluids help the discomfort. using magic mouthwash. avoiding citrus. some mild gerd. avoiding carbonated danny. is having daily formed bms. migel po.
[2023-01-30] MEDS: 0.9 % SODIUM CHLORIDE 250 ml IV (11:08)
[2023-01-30] MEDS: SODIUM CHLORIDE 0.9 % (FLUSH) 10 ML SYRINGE IVF (11:09)
[2023-02-06 08:56] LABS: Basophils Absolute Auto 0.01 K/uL (0.00-0.30); Basophils Percent Auto 0.2 % (0.0-3.0); Eosinophils Absolute Auto 0.02 K/uL (0.00-0.50); Eosinophils Percent Auto 0.3 % (0.0-7.0); Hematocrit 38.9 % (37.0-53.0); Hemoglobin* 13.1 gm/dL (13.5-17.5); Immature Granulocytes Abs Auto 0.04 K/uL (0.00-0.30); Immature Granulocytes Pct Auto 0.6 %; Lymphocytes Percent Auto 3.7 % (20-44); Mean Corpuscular HGB Conc 34 gm/dL (32-36); Mean Corpuscular Hemoglobin 34 pg (26-34); Mean Corpuscular Volume 100 fL (80-100); Monocytes Percent Auto 11.5 % (0.0-11.0); Neutrophils Percent Auto 83.7 % (42.0-72.0); Platelet Count* 149 K/uL (140-440); RDW Coefficient of Variation % 14.9 % (11.5-15.5); Red Blood Count 3.91 m/uL (4.30-5.90); White Blood Count* 6.17 K/uL (4.50-11.00)
[2023-02-06 08:59] LABS: Slide Review Reflex No
[2023-02-06 09:11] LABS: Chloride* 101 mmol/L (96-114)
[2023-02-06 09:12] LABS: Albumin* 4.3 g/dL (3.3-5.0); Sodium* 134 mmol/L (135-149)
[2023-02-06 09:15] LABS: Alanine Aminotransferase* 15 U/L (4-50); Alkaline Phosphatase* 66 U/L (40-150); Aspartate Amino Transferase* 16 U/L (12-35); Blood Urea Nitrogen* 18 mg/dL (7-30); Calcium* 9.4 mg/dL (8.4-10.6); Carbon Dioxide* 27 mmol/L (20-32); Creatinine* 1.1 mg/dL (0.5-1.5); Est. Creatinine Clearance* 87.97; Estimated Glomerular Filt Rate 77 ml/min; Glucose* 123 mg/dL (60-115); Total Protein* 7.5 g/dL (6.0-8.3)
[2023-02-13 08:30] LABS: Basophils Percent Auto 0.5 % (0.0-3.0); Hematocrit 39.4 % (37.0-53.0); Lymphocytes Percent Auto 13.6 % (20-44); Mean Corpuscular HGB Conc 33 gm/dL (32-36); Mean Corpuscular Hemoglobin 33 pg (26-34); Mean Corpuscular Volume 101 fL (80-100); Monocytes Percent Auto 13.1 % (0.0-11.0); Neutrophils Percent Auto 71.8 % (42.0-72.0); Platelet Count* 156 K/uL (140-440); RDW Coefficient of Variation % 14.4 % (11.5-15.5); Red Blood Count 3.89 m/uL (4.30-5.90); White Blood Count* 2.06 K/uL (4.50-11.00)
[2023-02-13 08:34] LABS: Slide Review Reflex No
[2023-02-13 08:43] LABS: Albumin* 4.3 g/dL (3.3-5.0); Chloride* 105 mmol/L (96-114); Potassium* 4.3 mmol/L (3.6-5.1); Sodium* 139 mmol/L (135-149)
[2023-02-13 08:45] LABS: Bilirubin Total* 0.4 mg/dL (0.1-1.5); Carbon Dioxide* 28 mmol/L (20-32); Est. Creatinine Clearance* 95.56; Estimated Glomerular Filt Rate 86 ml/min
[2023-02-13 08:46] LABS: Alanine Aminotransferase* 17 U/L (4-50); Alkaline Phosphatase* 63 U/L (40-150); Aspartate Amino Transferase* 18 U/L (12-35); Blood Urea Nitrogen* 18 mg/dL (7-30); Calcium* 9.5 mg/dL (8.4-10.6); Glucose* 117 mg/dL (60-115); Total Protein* 7.4 g/dL (6.0-8.3)
[2023-02-13 09:04] VITALS: BP 120/84; PULSE 81; RESP 16; TEMP 35.6; O2SAT 97
[2023-02-13] MEDS: dexAMETHasone 20 MG in 0.9 % SODIUM CHLORIDE 100 ml 100 ML 408 MG IVPB (10:07)
[2023-02-13] MEDS: ONDANSETRON 2 MG/ML inj 8 MG IV (10:08)
--- NOTE | 2023-02-13 10:15 | ONC.NURNOTE ---
Pt comes in for cycle 6 Carboplatin with radiation. Pt's chemo held last week do to being sent to Emergency room for abdominal pain. Labs WNL, discussed labs and Carbo dose with Dr. Dudley. Carboplatin dose decreased from 255mg to 242mg. Pt has last radiation on 02/20/23, Dr. Dudley would like pt to get cycle 7 on 02/20/23 if pt feels well and labs within parameters. Dr. Dudley requests nursing to call pt on Monday02/17/23 to see how pt is doing and if he feels well for last cycle.
--- NOTE | 2023-02-17 11:07 | PC.NURSE ---
Called pt today to check in. Gilbert would like to proceed with his last chemo treatment on 02/20/2023 after his last radiation treatment. Gilbert will come to [facility] for labs at 10:45, then go to radiation at 11:15, and then will come back to [facility] for his last chemo at 11:45.
[2023-02-20 11:03] LABS: Eosinophils Percent Auto 0.8 % (0.0-7.0); Hematocrit 39.5 % (37.0-53.0); Lymphocytes Percent Auto 8.4 % (20-44); Mean Corpuscular HGB Conc 33 gm/dL (32-36); Mean Corpuscular Hemoglobin 34 pg (26-34); Mean Corpuscular Volume 102 fL (80-100); Monocytes Percent Auto 9.6 % (0.0-11.0); Neutrophils Percent Auto 81.2 % (42.0-72.0); Platelet Count* 167 K/uL (140-440); RDW Coefficient of Variation % 14.7 % (11.5-15.5); Red Blood Count 3.86 m/uL (4.30-5.90); White Blood Count* 2.51 K/uL (4.50-11.00)
[2023-02-20 11:05] LABS: Slide Review Reflex No
[2023-02-20 11:18] LABS: Albumin* 4.3 g/dL (3.3-5.0); Chloride* 102 mmol/L (96-114); Potassium* 4.1 mmol/L (3.6-5.1); Sodium* 138 mmol/L (135-149)
[2023-02-20 11:21] LABS: Alanine Aminotransferase* 16 U/L (4-50); Alkaline Phosphatase* 55 U/L (40-150); Aspartate Amino Transferase* 19 U/L (12-35); Bilirubin Total* 0.5 mg/dL (0.1-1.5); Blood Urea Nitrogen* 17 mg/dL (7-30); Carbon Dioxide* 30 mmol/L (20-32); Creatinine* 1.2 mg/dL (0.5-1.5); Estimated Glomerular Filt Rate 69 ml/min; Glucose* 130 mg/dL (60-115); Total Protein* 7.1 g/dL (6.0-8.3)
[2023-02-20 11:22] LABS: Calcium* 9.4 mg/dL (8.4-10.6)
[2023-02-20 11:42] VITALS: BP 111/76; PULSE 88; RESP 16; TEMP 36.3; O2SAT 98
[2023-02-20] MEDS: 0.9 % SODIUM CHLORIDE 250 ml IV (11:59)
[2023-02-20] MEDS: dexAMETHasone 20 MG in 0.9 % SODIUM CHLORIDE 100 ml 100 ML 408 MG IVPB (12:30)
[2023-02-20] MEDS: ONDANSETRON 2 MG/ML inj 8 MG IV (12:30)
[2023-02-20] MEDS: TUBING SECONDARY IVPB (12:52)
[2023-02-20] MEDS: SODIUM CHLORIDE 0.9% IVPB (12:52)
[2023-02-20] MEDS: CARBOPLATIN IVPB (12:52)
[2023-03-07] MEDS: 0.9 % SODIUM CHLORIDE 1000 ml 1,000 ML IV (10:00)
[2023-03-07 10:23] LABS: Potassium* 3.9 mmol/L (3.6-5.1)
[2023-03-07 10:26] LABS: Blood Urea Nitrogen* 15 mg/dL (7-30); Creatinine* 1.2 mg/dL (0.5-1.5); Est. Creatinine Clearance* 78.45; Estimated Glomerular Filt Rate 69 ml/min; Magnesium* 1.8 mg/dL (1.5-2.6)
--- NOTE | 2023-03-08 13:22 | ONC.NURNOTE ---
dose correction discussed with patient nystatin 5cc (500,00U) QID over tongue surface for thrush
[2023-04-10 09:21] LABS: Basophils Percent Auto 0.4 % (0.0-3.0); Eosinophils Percent Auto 2.9 % (0.0-7.0); Hematocrit 41.7 % (37.0-53.0); Hemoglobin* 13.5 gm/dL (13.5-17.5); Lymphocytes Percent Auto 17.6 % (20-44); Mean Corpuscular HGB Conc 32 gm/dL (32-36); Mean Corpuscular Hemoglobin 34 pg (26-34); Mean Corpuscular Volume 105 fL (80-100); Monocytes Percent Auto 15.5 % (0.0-11.0); Neutrophils Percent Auto 63.6 % (42.0-72.0); Platelet Count* 252 K/uL (140-440); RDW Coefficient of Variation % 14.3 % (11.5-15.5); Red Blood Count 3.98 m/uL (4.30-5.90); White Blood Count* 2.45 K/uL (4.50-11.00)
[2023-04-10 09:25] LABS: Slide Review Reflex No
[2023-04-10 09:51] LABS: Albumin* 4.7 g/dL (3.3-5.0); Chloride* 103 mmol/L (96-114); Potassium* 4.2 mmol/L (3.6-5.1); Sodium* 138 mmol/L (135-149)
[2023-04-10 09:53] LABS: Bilirubin Total* 0.7 mg/dL (0.1-1.5); Carbon Dioxide* 27 mmol/L (20-32); Creatinine* 1.2 mg/dL (0.5-1.5); Est. Creatinine Clearance* 78.45; Estimated Glomerular Filt Rate 69 ml/min
[2023-04-10 09:54] LABS: Alanine Aminotransferase* 16 U/L (4-50); Alkaline Phosphatase* 55 U/L (40-150); Aspartate Amino Transferase* 24 U/L (12-35); Blood Urea Nitrogen* 17 mg/dL (7-30); Glucose* 108 mg/dL (60-115); Total Protein* 7.6 g/dL (6.0-8.3)
[2023-04-10 09:55] LABS: Calcium* 9.8 mg/dL (8.4-10.6)
[2023-04-10 10:22] LABS: Thyroid Stimulating Hormone* 0.735 uIU/mL (0.270-4.20)
[2023-04-10 12:38] LABS: Free T4 Free Thyroxine* 1.67 ng/dL (0.70-1.85)
--- NOTE | 2023-04-11 12:40 | ONC.NURNOTE ---
Addendum entered by Linn Marcos RN 04/11/23 15:44: Pt prefers pet scan to be done in [place], scheduled 05/18/23. Original Note: Pt scheduled for Pet scan in [place] on 05/18/23 at 1430 in [place].
[2023-04-11 16:23] LABS: Free T3 3.5 pg/mL (2.5-4.3)
--- NOTE | 2023-04-14 12:16 | ONC.NURNOTE ---
T3 and T4 results drawn on 04/10/[address] Dudley on 04/13/23.
== END 2023-04-23 23:59 | disposition home or self-care (01) ==
LOC: CCIC 10:30
PROVIDERS: Clinical Nurse Specialist; Internal Medicine Hematology & Oncology; PCP Family Medicine; Referring Provider Family Medicine; Visit Provider Internal Medicine Hematology & Oncology
DX: C02.9 Malignant neoplasm of tongue, unspecified (principal); R68.2 Dry mouth, unspecified
CPT/HCPCS: 36415; 80053; 82565; 83735; 84132; 84439; 84443; 84481; 84520; 85025; 85027; 87426; 96360; 96365; 96376; 96413; 96415; 96417; 99205; 99211; 99212; 99213; 99214; 99215; J1100; J1200; J1453; J2405; J2469; J7030; J7050; J9045; J9267; S0028

== ENCOUNTER 2023-05-18 16:07 | Outpatient (CLI) | payer BC, SELFPAY ==
--- NOTE | 2023-05-18 16:15 | CRLHL7_ITS ---
For Patients: As a result of the 21st Century Cures Act, medical imaging exams and procedure reports are released immediately into your electronic medical record. You may view this report before your referring provider. If you have questions, please contact your health care provider. INDICATION: Right tongue base squamous cell carcinoma with metastatic cervical lymphadenopathy. TECHNIQUE: Following IV injection of FDG with uptake of 62 minutes, noncontrast CT scan followed by a PET scan were acquired along the length of body from the head to the upper thighs. Noncontrast CT was used for anatomic localization and photon attenuation correction of the PET-CT scan. - Blood glucose level: 69. - FDG dose (mCi): 12.39. COMPARISON: 12/19/2022 PET-CT. 04/08/[address] FINDINGS: Head/Neck: Post treatment changes of the right base of tongue. Focus of uptake in the central tongue with SUV max of 10.5 measures 1.2 cm AP dimension. Resolution of tracer avid cervical lymph nodes. - Chest: No abnormal tracer uptake. - Background liver parenchyma with SUV mean of 2.9. No abnormal tracer uptake. - Musculoskeletal: No tracer avid bone lesion. - CT findings: Posttreatment changes involving the tongue. Basilar atelectasis. No pleural effusion or pneumothorax. Cystic appearing nodule in the left lower lobe measures 7 mm, but new from 12/19/2022. Stable probable left renal cyst. Diverticulosis. IMPRESSION : 1. Post treatment changes of the right base of tongue. 2. Resolution of tracer avid cervical lymph nodes. 3. Focus of uptake in the central tongue is new from prior exam but anterior from the prior tumor. Differential includes physiologic tongue activity versus tumor. Special attention on follow-up. 4. Cystic pulmonary nodule in the left lower lobe measures 7 mm and is new from prior exam, below the threshold of PET. Consider short-term chest CT follow-up. Dictated by Man Polo MD @ 05/26/2023 4:45:46 PM (Electronically Signed)
== END 2023-05-18 16:08 | disposition home or self-care (01) ==
LOC: RAD 16:08
PROVIDERS: PCP Family Medicine; Visit Provider Internal Medicine Hematology & Oncology
DX: C76.0 Malignant neoplasm of head, face and neck (principal); R91.1 Solitary pulmonary nodule
CPT/HCPCS: 78815; A9552

== ENCOUNTER 2023-07-07 10:48 | Outpatient (CLI) | payer BC, SELFPAY | END 2023-07-07 10:49 | disposition home or self-care (01) | LOC: NFLDREF 07-08 12:31 | PROVIDERS: PCP Family Medicine; Referring Provider Family Medicine; Visit Provider Nurse Practitioner Family | DX: Z79.899 Other long term (current) drug therapy (principal) | CPT/HCPCS: 80061; 82306 ==

== ENCOUNTER 2023-07-27 13:56 | Outpatient (CLI) | payer BC, SELFPAY ==
--- NOTE | 2023-07-27 14:00 | CRLHL7_ITS ---
For Patients: As a result of the Century Cures Act, medical imaging exams and procedure reports are released immediately into your electronic medical record. You may view this report before your referring provider. If you have questions, please contact your health care provider. CLINICAL HISTORY: Squamous cell carcinoma of the base of the tongue. TECHNIQUE: Following IV injection of 31-pdjgms-7-deoxyglucose (FDG) and a standard uptake period of approximately 60 minutes, a non-contrast CT scan followed by a PET scan were acquired along the length of the body from the mid portion of the head to the mid thighs. The non-contrast CT was used for anatomic localization and photon attenuation correction of the PET scan. Blood Glucose Level (mg/dL): 92 FDG Dose (mCi): 11.0 COMPARISON: PET-CT scan dated 18 May 2023. FINDINGS: Head/Neck: Increased activity throughout the base of the tongue, SUV max 23.4, previously 10.5. No adenopathy. Chest: No mediastinal or hilar adenopathy. No axillary adenopathy. The lungs show mild right basilar atelectasis. 7 mm ground-glass nodule in the posterior aspect of the left lower lobe is unchanged and shows no abnormal activity. No pneumothorax. Abdomen/Pelvis: No focal abnormalities identified in the visualized portions of the liver, spleen, pancreas, adrenal glands, and kidneys. No hydronephrosis. Colonic diverticulosis. The remainder of the GI tract is incompletely distended but shows no gross abnormalities. No retroperitoneal, pelvic sidewall, or mesenteric adenopathy. Atherosclerotic vascular calcifications. Bones: No abnormal skeletal activity identified. IMPRESSION: 1. Increased activity throughout the base of the tongue is worsened. 2. No adenopathy identified. 3. 7 mm ground-glass nodule in the posterior aspect of the left lower lobe is unchanged and shows no abnormal activity. Dictated by Keyur Salazar MD @ 07/28/2023 2:00:10 PM (Electronically Signed)
== END 2023-07-27 13:57 | disposition home or self-care (01) ==
LOC: RAD 13:56
PROVIDERS: PCP Family Medicine; Visit Provider Physician Assistant
DX: C01 Malignant neoplasm of base of tongue (principal); R91.8 Other nonspecific abnormal finding of lung field
CPT/HCPCS: 78815; A9552

== ENCOUNTER 2023-07-31 10:30 | Outpatient (RCR) | payer BC, SELFPAY ==
[2023-05-30 09:55] LABS: Basophils Percent Auto 0.9 % (0.0-3.0); Eosinophils Percent Auto 3.4 % (0.0-7.0); Hematocrit 42.8 % (37.0-53.0); Hemoglobin* 13.8 gm/dL (13.5-17.5); Lymphocytes Percent Auto 13.1 % (20-44); Mean Corpuscular HGB Conc 32 gm/dL (32-36); Mean Corpuscular Hemoglobin 33 pg (26-34); Mean Corpuscular Volume 102 fL (80-100); Monocytes Percent Auto 12.8 % (0.0-11.0); Neutrophils Percent Auto 69.8 % (42.0-72.0); Platelet Count* 271 K/uL (140-440); Red Blood Count 4.18 m/uL (4.30-5.90)
[2023-05-30 09:57] LABS: Slide Review Reflex No
[2023-05-30 10:06] LABS: Albumin* 4.5 g/dL (3.3-5.0); Chloride* 104 mmol/L (96-114); Potassium* 4.1 mmol/L (3.6-5.1); Sodium* 138 mmol/L (135-149)
[2023-05-30 10:08] LABS: Creatinine* 1.3 mg/dL (0.5-1.5); Estimated Glomerular Filt Rate 63 ml/min
[2023-05-30 10:09] LABS: Alanine Aminotransferase* 16 U/L (4-50); Alkaline Phosphatase* 50 U/L (40-150); Aspartate Amino Transferase* 21 U/L (12-35); Bilirubin Total* 0.6 mg/dL (0.1-1.5); Blood Urea Nitrogen* 20 mg/dL (7-30); Calcium* 9.6 mg/dL (8.4-10.6); Carbon Dioxide* 27 mmol/L (20-32); Glucose* 106 mg/dL (60-115); Total Protein* 7.4 g/dL (6.0-8.3)
== END 2023-11-26 23:59 | disposition home or self-care (01) ==
LOC: CCIC 10:30
PROVIDERS: PCP Family Medicine; Referring Provider Family Medicine; Visit Provider Internal Medicine Hematology & Oncology
DX: C76.0 Malignant neoplasm of head, face and neck (principal)
CPT/HCPCS: 36415; 80053; 84443; 85025; 99212; 99214; 99215

== ENCOUNTER 2023-08-30 12:30 | Outpatient (RCR) | payer BC, SELFPAY | END 2023-08-31 15:37 | disposition home or self-care (01) | PROVIDERS: PCP Family Medicine; Visit Provider Physician Assistant | DX: I97.89 Other postprocedural complications and disorders of the circulatory system, not elsewhere classified (principal); Z51.89 Encounter for other specified aftercare | CPT/HCPCS: 36415; 80053; 84443; 85025; 92507; 92522; 97110; 97140; 97161; 97165; 97535; 99212; 99214; X5282 ==

== ENCOUNTER 2023-12-05 14:44 | Outpatient (CLI) | payer BC, SELFPAY | END 2023-12-05 14:45 | disposition home or self-care (01) | LOC: LKVREF 14:45 | PROVIDERS: PCP Family Medicine; Visit Provider Family Medicine | DX: Z12.5 Encounter for screening for malignant neoplasm of prostate (principal) | CPT/HCPCS: G0103 ==

== ENCOUNTER 2024-02-06 12:43 | Outpatient (CLI) | payer BC, SELFPAY | END 2024-02-06 12:44 | disposition home or self-care (01) | LOC: WOUND 12:43 | PROVIDERS: PCP Family Medicine; Visit Provider Nurse Practitioner Family | DX: M27.8 Other specified diseases of jaws (principal); Z85.810 Personal history of malignant neoplasm of tongue | CPT/HCPCS: G0463 ==

== ENCOUNTER 2024-04-05 13:42 | Outpatient (CLI) | payer BC, SELFPAY ==
--- NOTE | 2024-04-05 14:00 | CRLHL7_ITS ---
For Patients: As a result of the Century Cures Act, medical imaging exams and procedure reports are released immediately into your electronic medical record. You may view this report before your referring provider. If you have questions, please contact your health care provider. Indication: Pulmonary nodule. Technique: Chest 1 view. Comparison: PET scan July 19, 2023. CT chest April 06, 2023. Findings/Impression: Cardiovascular and mediastinum: Heart size and vasculature are normal in caliber and appearance. Lungs and pleural space: Lungs are hyperinflated consistent with COPD. Faint nodular density in the lower right lung field likely represents a nipple shadow. There is scarring in the left lung. Remainder of the lungs and pleural spaces are clear. No pneumothorax. Bones and soft tissues: No acute findings. Dictated by Wyatt Umanzor MD @ 04/08/2024 7:25:40 AM (Electronically Signed)
== END 2024-04-05 13:43 | disposition home or self-care (01) ==
LOC: RAD 13:43
PROVIDERS: PCP Family Medicine; Visit Provider Nurse Practitioner
DX: R91.1 Solitary pulmonary nodule (principal)
CPT/HCPCS: 71046

== ENCOUNTER 2024-04-25 07:58 | Outpatient (RCR) | payer BC, SELFPAY | END 2024-10-22 23:59 | disposition home or self-care (01) | LOC: CCIC 07:58 | PROVIDERS: PCP Family Medicine; Visit Provider Internal Medicine Hematology & Oncology | DX: C01 Malignant neoplasm of base of tongue (principal) | CPT/HCPCS: 99202; 99203; 99204 ==

== ENCOUNTER 2024-05-28 14:46 | Outpatient (CLI) | payer BC, SELFPAY ==
--- NOTE | 2024-05-28 15:00 | CRLHL7_ITS ---
For Patients: As a result of the Century Cures Act, medical imaging exams and procedure reports are released immediately into your electronic medical record. You may view this report before your referring provider. If you have questions, please contact your health care provider. INDICATION : Tongue carcinoma. Ground-glass nodule left lung. TECHNIQUE : 2View chest FINDINGS : Comparison chest radiograph September 2022. CT scan of the chest March 2023. PET-CT scan July 27, 2023. Scarring in the left lower lobe and surgical changes of a wedge resection are noted. No new pulmonary nodules are identified by conventional chest radiograph. The heart size and pulmonary vascularity appear normal. No pneumothorax. IMPRESSION : Interval wedge resection in the left lower lobe, no new pulmonary nodules. Dictated by Bartolo Menchaca MD @ 05/29/2024 6:46:21 PM (Electronically Signed)
== END 2024-05-28 14:47 | disposition home or self-care (01) ==
PROVIDERS: PCP Family Medicine; Visit Provider Nurse Practitioner
DX: R91.1 Solitary pulmonary nodule (principal)
CPT/HCPCS: 71046

== ENCOUNTER 2025-01-24 11:13 | Outpatient (CLI) | payer BC, SELFPAY | END 2025-01-24 11:14 | disposition home or self-care (01) | PROVIDERS: PCP Family Medicine; Visit Provider Family Medicine | DX: E78.5 Hyperlipidemia, unspecified (principal); Z12.5 Encounter for screening for malignant neoplasm of prostate | CPT/HCPCS: 80061; G0103 ==

== ENCOUNTER 2025-05-05 09:24 | Outpatient (CLI) | payer BC, SELFPAY | END 2025-05-05 09:25 | disposition home or self-care (01) | PROVIDERS: PCP Family Medicine; Visit Provider Nurse Practitioner | DX: C01 Malignant neoplasm of base of tongue (principal); C10.9 Malignant neoplasm of oropharynx, unspecified; D89.89 Other specified disorders involving the immune mechanism, not elsewhere classified | CPT/HCPCS: 36415; 84443 ==

== ENCOUNTER 2025-08-01 15:00 | Outpatient (CLI) | payer BC, SELFPAY | END 2025-08-01 15:01 | disposition home or self-care (01) | LOC: LKVREF 15:00 | PROVIDERS: PCP Family Medicine; Visit Provider Family Medicine | DX: F31.70 Bipolar disorder, currently in remission, most recent episode unspecified (principal) | CPT/HCPCS: 80076 ==